=== PATIENT | male | born 2000 | race Caucasian/White ===

== ENCOUNTER 2022-03-12 11:51 | Inpatient (IN) | payer OTHER ==
[~2022-03-12] VITALS: Ht 188 cm; Wt 112.3 kg
[2022-03-12 14:51] LABS: HEMATOCRIT 39.2 % (42.0-52.0); HEMOGLOBIN 12.6 g/dl (13.5-17.5); MEAN CORPUSCULAR HEMOGLOBIN 27.4 pg (27.0-33.0); MEAN CORPUSCULAR HGB CONC 32.1 g/dl (32.0-36.5); MEAN CORPUSCULAR VOLUME 85.2 fl (80.0-96.0); PLATELET COUNT, AUTOMATED 202 10^3/uL (150-450); WHITE BLOOD COUNT 11.1 10^3/uL (4.0-10.0)
[2022-03-12 15:15] LABS: AMPHETAMINES LEVEL URINE NEGATIVE (NEGATIVE); BARBITURATES URINE NEGATIVE (NEGATIVE); BENZODIAZEPINES URINE NEGATIVE (NEGATIVE); CANNABINOIDS URINE NEGATIVE (NEGATIVE); COCAINE METABOLITE URINE NEGATIVE (NEGATIVE); METHADONE URINE NEGATIVE (NEGATIVE); OPIATES URINE NEGATIVE (NEGATIVE); PHENCYCLIDINE URINE NEGATIVE (NEGATIVE)
[2022-03-12 15:17] LABS: ETHYL ALCOHOL (ETHANOL) 0.003 % (0.000-0.010)
[2022-03-12 15:19] LABS: ACETAMINOPHEN LEVEL < 2.0 UG/ML (10.0-20.0); BILIRUBIN,DIRECT 0.1 MG/DL (<0.4); SALICYLATE LEVEL < 3.0 MG/DL (<30)
[2022-03-12 15:21] LABS: RSV AMPLIFICATION NEGATIVE (NEGATIVE)
[2022-03-12 15:23] LABS: ALBUMIN 4.1 G/DL (3.2-5.2); ALKALINE PHOSPHATASE 73 U/L (46-116); ALT/SGPT 197 U/L (7.0-40); AST/SGOT 416 U/L (<34); BILIRUBIN,TOTAL 0.3 MG/DL (0.3-1.2); BLOOD UREA NITROGEN 12 MG/DL (9-23); CALCIUM LEVEL 8.9 MG/DL (8.5-10.1); CARBON DIOXIDE LEVEL 25 MMOL/L (20-31); CHLORIDE LEVEL 103 MMOL/L (98-107); CREATININE FOR GFR 0.97 MG/DL (0.70-1.30); GLOMERULAR FILTRATION RATE > 60.0 (>60); GLUCOSE, FASTING 118 MG/DL (60-100); POTASSIUM SERUM 3.8 MMOL/L (3.5-5.1); SODIUM LEVEL 137 MMOL/L (136-145); THYROID STIMULATING HORMONE 0.973 uIU/ML (0.55-4.78); TOTAL PROTEIN 7.1 G/DL (5.7-8.2)
[2022-03-12] MEDS ORDERED: MOM 30ML SUSPENSION UDC PO PRN (20:15)
[2022-03-12] MEDS ORDERED: MAALOX 30 ML SUSP *UDC PO PRN (20:15)
[2022-03-12] MEDS ORDERED: DIPH50CA PO (21:08)
[2022-03-12] MEDS ORDERED: ACET-897 PO (21:08)
[2022-03-12] MEDS ORDERED: LISI20TA33 PO (21:08)
[2022-03-12] MEDS ORDERED: HOME MED LIST COMPLETE! XX SCH (21:10)
[2022-03-12 22:24] VITALS: BP 162/98
[2022-03-12] MEDS: traZODone 50 MG TAB PO PRN (22:47)
[2022-03-12] MEDS: LORazepam 1 MG TAB PO PRN (22:49)
[2022-03-12] MEDS: ACETAMINOPHEN TAB 650MG DOSE (2X325MG) PO PRN (22:50)
[2022-03-13 06:51] VITALS: BP 140/90
[2022-03-13] MEDS: SERTRALINE HCL 50 MG TAB PO SCH (11:45)
[2022-03-13] MEDS: ACETAMINOPHEN TAB 650MG DOSE (2X325MG) PO PRN ×2 (11:47→17:53)
[2022-03-13 12:36] LABS: BILIRUBIN,DIRECT 0.3 MG/DL (<0.4)
[2022-03-13 12:40] LABS: ALBUMIN 4.3 G/DL (3.2-5.2); TOTAL PROTEIN 7.7 G/DL (5.7-8.2)
[2022-03-13 13:03] LABS: ALBUMIN 4.4 G/DL (3.2-5.2); ALKALINE PHOSPHATASE 74 U/L (46-116); ALT/SGPT 201 U/L (7.0-40); AST/SGOT 315 U/L (<34); BILIRUBIN,DIRECT 0.3 MG/DL (<0.4); BILIRUBIN,TOTAL 0.9 MG/DL (0.3-1.2); TOTAL PROTEIN 7.4 G/DL (5.7-8.2)
[2022-03-13 13:07] LABS: HEMOGLOBIN A1c 5.1 % (4.0-6.0)
[2022-03-13 13:18] LABS: HEPATITIS B SURFACE ANTIGEN NEGATIVE (NEGATIVE)
[2022-03-13 13:27] LABS: MONO SCRN NEGATIVE (NEGATIVE)
[2022-03-13 13:38] LABS: HEPATITIS B CORE ANTIBODY IGM NEGATIVE (NEGATIVE)
[2022-03-13 13:43] LABS: CHOLESTEROL RISK RATIO 3.53 (<5); HDL CHOLESTEROL 44.7 MG/DL (>40); LDL CHOLESTEROL 92.7 MG/DL (<100)
[2022-03-13 16:18] VITALS: BP 134/61
[2022-03-13] MEDS: traZODone 50 MG TAB PO PRN (20:08)
[2022-03-13] MEDS: LORazepam 1 MG TAB PO PRN (20:10)
[2022-03-14 06:42] VITALS: BP 111/73
[2022-03-14] MEDS: SERTRALINE HCL 50 MG TAB PO SCH (09:13)
[2022-03-14] MEDS: ACETAMINOPHEN TAB 650MG DOSE (2X325MG) PO PRN ×2 (09:14→17:27)
[2022-03-14 18:23] VITALS: BP 160/88
[2022-03-14] MEDS: traZODone 50 MG TAB PO PRN (21:46)
[2022-03-15 06:05] VITALS: BP 116/57
[2022-03-15] MEDS: SERTRALINE HCL 50 MG TAB PO SCH (08:26)
[2022-03-15] MEDS: ACETAMINOPHEN TAB 650MG DOSE (2X325MG) PO PRN (08:28)
[2022-03-15 16:35] VITALS: BP 146/80
[2022-03-15] MEDS: traZODone 50 MG TAB PO PRN (20:02)
[2022-03-16 06:32] VITALS: BP 153/87
[2022-03-16] MEDS: SERTRALINE HCL 50 MG TAB PO SCH (07:58)
[2022-03-16 16:45] VITALS: BP 126/65
[2022-03-16] MEDS: LORazepam 1 MG TAB PO PRN (20:08)
[2022-03-16] MEDS: traZODone 50 MG TAB PO PRN (20:08)
[2022-03-17 06:43] VITALS: BP 142/82
[2022-03-17] MEDS: SERTRALINE HCL 50 MG TAB PO SCH (07:39)
[2022-03-17 16:35] VITALS: BP 146/86
[2022-03-17] MEDS: traZODone 50 MG TAB PO PRN (20:22)
[2022-03-17] MEDS: LORazepam 1 MG TAB PO PRN (20:23)
[2022-03-18 06:00] VITALS: BP 141/84
[2022-03-18 08:33] VITALS: BP 141/84
[2022-03-18] MEDS: SERTRALINE HCL 50 MG TAB PO SCH (08:33)
[2022-03-18] MEDS ORDERED: SERT50TA29 PO (09:52)
[2022-03-18] MEDS ORDERED: TRAZ-252 PO (09:52)
[2022-03-18] MEDS ORDERED: AMLO1TAB25 PO (09:52)
== END 2022-03-18 12:30 | disposition home or self-care (01) | DRG 885 ==
LOC: M ED 14:38 → M ED INP 20:15 → M PSY 21:37
PROVIDERS: ADMIT Student in an Organized Health Care Education/Training Program; ATTEND Student in an Organized Health Care Education/Training Program
DX: F33.1 Major depressive disorder, recurrent, moderate (principal); R45.851 Suicidal ideations; Z81.8 Family history of other mental and behavioral disorders; F60.89 Other specific personality disorders; I10 Essential (primary) hypertension; R79.89 Other specified abnormal findings of blood chemistry; Z62.810 Personal history of physical and sexual abuse in childhood; Z91.52 Personal history of nonsuicidal self-harm; Z62.811 Personal history of psychological abuse in childhood; Z79.899 Other long term (current) drug therapy

== ENCOUNTER 2022-03-26 09:00 | Emergency (ER) | payer OTHER ==
[~2022-03-26] VITALS: Ht 188 cm; Wt 111.4 kg
[~2022-03-26 09:00] MED LIST: ACET-897 PO; AMLO1TAB25 PO; DIPH50CA PO; LISI20TA33 PO; SERT50TA29 PO; TRAZ-252 PO
[2022-03-26 10:15] LABS: HEMOGLOBIN 12.5 g/dl (13.5-17.5); MEAN CORPUSCULAR HEMOGLOBIN 27.8 pg (27.0-33.0); MEAN CORPUSCULAR HGB CONC 31.3 g/dl (32.0-36.5); MEAN CORPUSCULAR VOLUME 88.9 fl (80.0-96.0); PLATELET COUNT, AUTOMATED 220 10^3/uL (150-450); WHITE BLOOD COUNT 10.2 10^3/uL (4.0-10.0)
[2022-03-26 10:46] LABS: ETHYL ALCOHOL (ETHANOL) 0.003 % (0.000-0.010)
[2022-03-26 10:47] LABS: ACETAMINOPHEN LEVEL < 2.0 UG/ML (10.0-20.0)
[2022-03-26 10:48] LABS: ALBUMIN 4.3 G/DL (3.2-5.2); ALKALINE PHOSPHATASE 70 U/L (46-116); ALT/SGPT 100 U/L (7.0-40); AST/SGOT 129 U/L (<34); BILIRUBIN,DIRECT 0.2 MG/DL (<0.4); BILIRUBIN,TOTAL 0.5 MG/DL (0.3-1.2); BLOOD UREA NITROGEN 10 MG/DL (9-23); CALCIUM LEVEL 9.2 MG/DL (8.5-10.1); CARBON DIOXIDE LEVEL 29 MMOL/L (20-31); CHLORIDE LEVEL 103 MMOL/L (98-107); CREATININE FOR GFR 1.01 MG/DL (0.70-1.30); GLOMERULAR FILTRATION RATE > 60.0 (>60); GLUCOSE, FASTING 90 MG/DL (60-100); POTASSIUM SERUM 4.1 MMOL/L (3.5-5.1); SALICYLATE LEVEL < 3.0 MG/DL (<30); SODIUM LEVEL 139 MMOL/L (136-145); THYROID STIMULATING HORMONE 1.497 uIU/ML (0.55-4.78); TOTAL PROTEIN 7.4 G/DL (5.7-8.2)
[2022-03-26 11:34] LABS: AMPHETAMINES LEVEL URINE NEGATIVE (NEGATIVE); BARBITURATES URINE NEGATIVE (NEGATIVE); BENZODIAZEPINES URINE NEGATIVE (NEGATIVE); COCAINE METABOLITE URINE NEGATIVE (NEGATIVE); METHADONE URINE NEGATIVE (NEGATIVE); OPIATES URINE NEGATIVE (NEGATIVE)
[2022-03-26 11:35] LABS: CANNABINOIDS URINE NEGATIVE (NEGATIVE); PHENCYCLIDINE URINE NEGATIVE (NEGATIVE)
[2022-03-26 11:37] LABS: RSV AMPLIFICATION NEGATIVE (NEGATIVE)
[2022-03-26] MEDS ORDERED: HOME MED LIST COMPLETE! XX SCH (19:10)
[2022-03-26 22:30] VITALS: BP 148/86
== END 2022-03-26 22:39 ==
LOC: M ED 09:00
DX: F32.9 Major depressive disorder, single episode, unspecified (principal); R45.851 Suicidal ideations; I10 Essential (primary) hypertension; Z79.899 Other long term (current) drug therapy